=== PATIENT | female | born 2000 | race Caucasian/White ===

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

== ENCOUNTER 2022-07-26 02:21 | Emergency (ER) | payer BC, MEDICAID ==
[~2022-07-26] VITALS: Ht 172.7 cm; Wt 63.5 kg
[2022-07-26 02:36] VITALS: BP 118/85
[2022-07-26] MEDS ORDERED: sulfamethoxazole/trimethoprim DS (800/160mg) tablet PO ONE (03:00)
[2022-07-26] MEDS ORDERED: SULF1TAB49 PO (03:05)
== END 2022-07-26 03:25 | disposition home or self-care (01) ==
LOC: ER 02:23
DX: N61.1 Abscess of the breast and nipple (principal); Z88.1 Allergy status to other antibiotic agents
CPT/HCPCS: 99284

== ENCOUNTER 2022-07-28 07:24 | Emergency (ER) | payer BC, MEDICAID ==
[~2022-07-28] VITALS: Ht 172.7 cm; Wt 63.6 kg
[~2022-07-28 07:24] MED LIST: SULF1TAB49 PO
[2022-07-28] MEDS ORDERED: acetaminophen 325mg tablet PO ONE (08:00)
[2022-07-28 09:00] LABS: BASOPHILS % (AUTO) 0.3 % (0-1); EOSINOPHILS # (AUTO) 0.1 X10'3 (0-0.9); EOSINOPHILS % (AUTO) 1.5 % (0-6); HEMATOCRIT 39.6 % (35.0-45.0); HEMOGLOBIN 13.7 g/dl (12.0-16.0); LYMPHOCYTES # (AUTO) 1.3 X10'3 (1.1-4.8); LYMPHOCYTES % (AUTO) 15.2 % (21-51); MEAN CORPUSCULAR HEMOGLOBIN 29.1 PG (27.0-31.0); MEAN CORPUSCULAR HGB CONC 34.6 g/dL (33.0-36.5); MEAN PLATELET VOLUME 8.2 FL (7.4-10.4); MONOCYTES # (AUTO) 0.9 X10'3 (0-0.9); MONOCYTES % (AUTO) 10.7 % (2-12); NEUTROPHILS % (AUTO) 72.3 % (42-75); PLATELET COUNT 235 X10'3 (140-440); RED BLOOD COUNT 4.71 X10'6 (4.20-5.60); RED CELL DISTRIBUTION WIDTH 12.9 % (11.5-14.5); WHITE BLOOD COUNT 8.3 X10'3 (4.5-11.0)
[2022-07-28 09:13] LABS: ALANINE AMINOTRANSFERASE 14 U/L (12-78); ALBUMIN 3.9 G/DL (3.4-5.0); ALBUMIN/GLOBULIN RATIO 0.9 (1.1-1.5); ALKALINE PHOSPHATASE 84 IU/L (46-116); ANION GAP 12 (8-16); ASPARTATE AMINO TRANSFERASE 13 U/L (10-37); BILIRUBIN,TOTAL 0.5 MG/DL (0.1-1.0); BLOOD UREA NITROGEN 8 MG/DL (7-18); BUN/CREATININE RATIO 11.6 (6.6-38.0); CALCIUM 8.9 MG/DL (8.5-10.1); CHLORIDE 101 MMOL/L (99-107); CREATININE 0.69 MG/DL (0.40-0.90); GLUCOSE 89 MG/DL (70-104); POTASSIUM 3.7 MMOL/L (3.5-5.1); SODIUM 135 MMOL/L (135-145); TOTAL CARBON DIOXIDE 22.5 MMOL/L (24-32); TOTAL PROTEIN 8.1 G/DL (6.4-8.2); eGFR > 90 ML/MIN
--- NOTE | 2022-07-28 11:50 | NUR ---
Called IR regarding pt procedure plan as per gertrude from IR she does not know and they are in middle of procedure and call us back after the procedure is finished.SBAR to dr grace.
[2022-07-28 13:30] VITALS: BP 108/68
--- NOTE | 2022-07-28 13:34 | NUR ---
IR AT BEDSIDE DOING THE PROCEDURE.
[2022-07-28 13:39] VITALS: BP 108/73
[2022-07-28] MEDS ORDERED: sulfamethoxazole/trimethoprim DS (800/160mg) tablet PO ONE (14:10)
[2022-07-28 14:46] VITALS: BP 105/69
== END 2022-07-28 14:50 | disposition home or self-care (01) ==
LOC: ER 07:25
DX: N61.1 Abscess of the breast and nipple (principal); Z20.822 Contact with and (suspected) exposure to COVID-19; Z88.1 Allergy status to other antibiotic agents
CPT/HCPCS: 10160; 36415; 76942; 80053; 85025; 87070; 87811; 99284